=== PATIENT | female | born 1940 | race Caucasian/White ===

== ENCOUNTER 2018-12-02 11:08 | Emergency (ER) | payer MEDICARE, OTHER ==
[2018-12-02 11:30] VITALS: BP 144/77
--- NOTE | 2018-12-02 11:36 | UC ---
Hand/Wrist HPI - HPI Summary HPI Summary: Patient is a 78-year-old female presenting with for right thumb pain after she slipped out of bed last night and caught herself with her right hand. States she immediately iced it and has been taking Advil since. Denies pain at rest and notes worsening pain thumb flexion. Denies numbness and tingling. Notes swelling and bruising of the tip of her thumb. Denies pain in hand, wrist , or other fingers. - History Of Current Complaint Chief Complaint: UCUpperExtremity Stated Complaint: THUMB INJ Hx Obtained From: Patient Onset/Duration: Sudden Onset Severity Initially: Moderate Severity Currently: Severe Pain Intensity: 8 - Allergies/Home Medications Allergies/Adverse Reactions: Allergies Allergy/AdvReac Type Severity Reaction Status Date / Time ceftin Allergy Diarrhea Uncoded 12/02/18 11:22 Home Medications: Home Medications Aspirin EC TAB* [Ecotrin EC Low Dose 81 MG*] 1 tab PO DAILY 12/02/18 [History Confirmed 12/02/18] Cholecalciferol TAB* [Vitamin D TAB*] 1 tab PO DAILY 12/02/18 [History Confirmed 12/02/18] Metoprolol Succinate 1 tab PO DAILY 12/02/18 [History Confirmed 12/02/18] Rosuvastatin (NF) [Crestor (NF)] 10 mg PO DAILY 12/02/18 [History Confirmed ] Triamterene/HCTZ 37.5-25 MG* [Dyazide CAP*] 1 tab PO EVERY OTHER DAY 12/02/18 [ History Confirmed 12/02/18] Ubidecarenone [Coq10] 100 mg PO DAILY 12/02/18 [History Confirmed 12/02/18] PMH/Surg Hx/FS Hx/Imm Hx Cardiovascular History: Hypertension - Surgical History Surgical History: Yes Surgery Procedure, Year, and Place: colon CA surgery. cholycystecomy. T&A. R shoulder - Family History Known Family History: Positive: Non-Contributory - Social History Alcohol Use: Daily Substance Use Type: None Smoking Status (MU): Never Smoked Tobacco Review of Systems All Other Systems Reviewed And Are Negative: Yes Constitutional: Positive: Negative. Negative: Fever, Chills Skin: Positive: Bruising Respiratory: Positive: Negative Cardiovascular: Positive: Negative Neurovascular: Positive: Negative Musculoskeletal: Positive: Arthralgia, Decreased ROM, Edema Neurological: Negative: Weakness, Paresthesia, Numbness Physical Exam Triage Information Reviewed: Yes Appearance: Well-Appearing, No Pain Distress, Well-Nourished Vital Signs: Initial Vital Signs Temp 98.5 F 12/02/18 11:26 Pulse 78 12/02/18 11:26 Resp 15 12/02/18 11:26 BP 144/77 12/02/18 11:26 Pulse Ox 100 12/02/18 11:26 Vital Signs Reviewed: Yes Eyes: Positive: Conjunctiva Clear ENT: Positive: Hearing grossly normal Neck: Positive: Supple Respiratory: Positive: No respiratory distress Cardiovascular: Positive: Pulses Normal - Strong radial pulses bilaterally, Brisk Capillary Refill Musculoskeletal: Positive: Strength Intact, ROM Limited @ - Right thumb flexion due to pain, Edema @ - Right thumb and index finger, Other: - Pain with passive and active flexion of the right thumb. No tenderness to palpation Neurological: Positive: Alert Psychological: Positive: Age Appropriate Behavior Skin Exam: Other - Ecchymosis noted of distal right thumb Diagnostics - Radiology R thumb xray Radiology Interpretation Completed By: Radiologist Summary of Radiographic Findings: FINDINGS: There is soft tissue swelling in the thumb. The bones are normal alignment. No fracture is seen. 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 IMPRESSION: SOFT TISSUE SWELLING, NO FRACTURE IS SEEN. Hand/Wrist Course/Dx - Course Course Of Treatment: Discussed the negative x-rays and probable thumb sprain with patient. Instructed to continue with symptomatic treatment including finger splint. Directed to follow-up with her orthopedic doctor in [place] if pain persists. Instructed to go to the emergency room if symptoms worsen. Patient voiced understanding and agreed with treatment plan. - Differential Dx/Diagnosis Provider Diagnosis: Sprain of right thumb Discharge ED - Sign-Out/Discharge Documenting (check all that apply): Patient Departure All imaging exams completed and their final reports reviewed: Yes - Discharge Plan Condition: Stable Disposition: HOME Patient Education Materials: Finger Sprain (ED) Referrals: No Primary Care Phys,NOPCP [Primary Care Provider] - Additional Instructions: As discussed, the xrays of the thumb did not show any fractures. Rest, ice, elevate, and use the thumb splint to help relieve pain. You may also use over the counter pain medications as directed for pain relief. If pain does not resolve, follow up with your orthopedic doctor. Go to the emergency room if pain worsens, the thumb becomes cold and numb, or you are unable to move the thumb. - Billing Disposition and Condition Condition: STABLE Disposition: Home - Attestation Statements Provider Attestation: I was available for consult. This patient was seen by the DONTAE. The patient was not presented to, seen by, or examined by me. -Qasim
== END 2018-12-02 12:19 | disposition home or self-care (01) ==
LOC: UCEAST 11:08
DX: S63.681A Other sprain of right thumb, initial encounter (principal); I10 Essential (primary) hypertension; Z79.82 Long term (current) use of aspirin; W18.49XA Other slipping, tripping and stumbling without falling, initial encounter; Y92.9 Unspecified place or not applicable; Z88.1 Allergy status to other antibiotic agents; Z79.899 Other long term (current) drug therapy
CPT/HCPCS: 99202; G0463